=== PATIENT | male | born 1970 | race Caucasian/White ===

== ENCOUNTER 2016-11-15 19:42 | Emergency (ER) | payer MEDICARE, OTHER ==
[~2016-11-15] VITALS: Ht 172.7 cm; Wt 80.0 kg
[~2016-11-15 19:42] MED LIST: ASPI81CH CHEW; OMEP20TA PO; VENL75XR PO
[2016-11-15 19:48] VITALS: BP 136/63; PULSE 98; RESP 18; TEMP 98.4; O2SAT 100
--- NOTE | 2016-11-15 19:58 | PD ---
HPI Chief Complaint: General Weakness Time Seen by Provider: 19:56 Travel History International Travel<30 days: Yes Contact w/Intl Traveler<30days: [place] Traveled to: [place] Traveled to known affect area: No History of Present Illness HPI 46-year-old male presents to the emergency department for evaluation of right arm and leg cramping after he states he was "walking a lot". 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 Patient states he takes a baby aspirin and Effexor. He denies any headache or visual changes. No chest pain or abdominal pain. No shortness of breath. No vomiting. Patient states the right leg and arm are painful, cramping. PFSH Past Medical History Cerebrovascular Accident: Yes (Approx 8yrs ago per pt.) Diminished Hearing: No Musculoskeletal: Yes (right sided weakness r/t cva ) Psychiatric: Yes Pancreatitis: Yes Past Surgical History Appendectomy: Yes Other Surgery: Yes (WHIPPLE) Social History Alcohol Use: Yes Tobacco Use: Yes (CIGARS 3/DAY) Substance Use: No Allergies-Medications (Allergen,Severity, Reaction): Coded Allergies: No Known Allergies (Unverified , 11/15/16) Per pt. Reported Meds & Prescriptions Reported Meds & Active Scripts Active Omeprazole 20 Mg Tab 20 Mg PO DAILY Reported Aspirin 81 Mg Chew 81 Mg CHEW DAILY Effexor XR 24 HR (Venlafaxine HCl) 75 Mg Cap 3 Cap PO DAILY Review of Systems Except as stated in HPI: all other systems reviewed are Neg Physical Exam Narrative GENERAL: Well-developed well-nourished male patient, ambulatory. Afebrile. SKIN: Warm and dry. HEAD: Normocephalic. Atraumatic. EYES: No scleral icterus. No injection or drainage. NECK: Supple, trachea midline. No JVD or lymphadenopathy. CARDIOVASCULAR: Regular rate and rhythm without murmurs, gallops, or rubs. RESPIRATORY: Breath sounds equal bilaterally. No accessory muscle use. Lungs sounds are clear to auscultation. GASTROINTESTINAL: Abdomen soft, non-tender, nondistended. MUSCULOSKELETAL: No cyanosis, or edema. Patient's right arm is contracted. I am able to straighten out without difficulty. He has tenderness over right arm and right leg. BACK: Nontender without obvious deformity. No CVA tenderness. No midline spinal tenderness. Data Data Last Documented VS Vital Signs Date Time Temp Pulse Resp B/P Pulse Ox O2 Delivery O2 Flow Rate FiO2 11/15/16 19:48 98.4 98 18 136/63 100 Orders Creatine Kinase (Cpk) (11/15/16 19:55) Basic Metabolic Panel (Bmp) (11/15/16 19:55) Sodium Chlor 0.9% 1000 Ml Inj (Ns 1000 M (11/15/16 20:00) Labs Laboratory Tests Test 11/15/16 19:59 Sodium Level 136 MEQ/L Potassium Level 3.5 MEQ/L Chloride Level 102 MEQ/L Carbon Dioxide Level 24.3 MEQ/L Anion Gap 10 MEQ/L Blood Urea Nitrogen 2 MG/DL Creatinine 0.64 MG/DL Estimat Glomerular Filtration 135 ML/MIN Rate Random Glucose 91 MG/DL Calcium Level 8.0 MG/DL Total Creatine Kinase 247 U/L MDM Medical Decision Making Medical Screen Exam Complete: Yes Emergency Medical Condition: Yes Medical Record Reviewed: Yes Differential Diagnosis Electrolytes abnormality versus rhabdomyolysis versus dehydration Narrative Course 46-year-old male presents to the emergency department for evaluation of right arm and right leg cramping and pain after "walking a lot". BMP, CK ordered and pending. Patient is given 1 L normal saline IV bolus. BMP shows no acute abnormality. CK is 247. Upon reassessment, patient states he feels better after IV fluids. The patient is stable for discharge. He is to follow-up with his primary care physician. He is to return for any acute worsening of symptoms. Patient is agreeable to this plan. Diagnosis Primary Impression: Muscle cramps Referrals: Primary Care Physician call for appointment Patient Instructions: General Instructions, Muscle Cramp (ED) Additional Instructions: Drink plenty of water. Follow up with your primary care physician. Return to the emergency department for any acute, worsening of symptoms. Med/Other Pt SpecificInfo: No Change to Meds Disposition: 01 DISCHARGE HOME Condition: Stable Priyanka Chester FARIBA Nov 15, 2016 19:58
[2016-11-15] MEDS ORDERED: SODIUM CHLOR 0.9% 1000 ML INJ 1,000 ML IV ONE (20:00)
[2016-11-15 20:41] LABS: BICARBONATE 24.3 MEQ/L (21.0-32.0); POTASSIUM 3.5 MEQ/L (3.5-5.1)
[2016-11-15] MEDS ORDERED: IBUPROFEN 600 MG TAB PO ONE (21:15)
[2016-11-15 21:33] VITALS: BP 130/80
== END 2016-11-15 21:34 | disposition home or self-care (01) ==
LOC: NEPC 19:42
DX: R25.2 Cramp and spasm (principal); F17.290 Nicotine dependence, other tobacco product, uncomplicated; F10.10 Alcohol abuse, uncomplicated; Z86.73 Personal history of transient ischemic attack (TIA), and cerebral infarction without residual deficits
CPT/HCPCS: 80048; 82550; 96360; 99283; J7030

== ENCOUNTER 2016-11-17 20:16 | Inpatient (IN) | payer MEDICARE ==
[~2016-11-17] VITALS: Ht 185.4 cm; Wt 79.8 kg
[2016-11-17 20:18] VITALS: BP 110/52; PULSE 89; RESP 28; O2SAT 96
[2016-11-17] MEDS ORDERED: SODIUM CHLOR 0.9% 1000 ML INJ 1,000 ML IV SCH (20:27)
[2016-11-17] MEDS ORDERED: ACTIVATED CHARCOAL/SORBITOL LIQUID 25 GM/120 ML BTL NG ONE (20:30)
[2016-11-17] MEDS ORDERED: SODIUM CHLORIDE 0.9% FLUSH 5 ML FLUSH IVF PRN (20:30)
--- NOTE | 2016-11-17 20:35 | PD ---
HPI Chief Complaint: overdose Time Seen by Provider: 20:29 Travel History International Travel<30 days: No Contact w/Intl Traveler<30days: No History of Present Illness HPI 46 year old male presents to the emergency department voluntarily for overdose on 20 tablets Trazodone 150 mg PO approximately one hour prior to arrival. When asked why the patient did this, he states this just too much I want it to end. When asked if he wants to kill himself, he does respond with "yes". The patient also takes Effexor. He denies taking other medications. Patient denies any complaints at this time. Patient has recently moved from [place]. He does report trying to kill himself one year ago. He denies any psychiatric diagnosis. He did have a CVA with right-sided deficit approximately 8 years ago. He also takes a baby aspirin daily. Patient denies any alcohol or illegal drug use. PFSH Past Medical History Cerebrovascular Accident: Yes (Approx 8yrs ago per pt.) Diminished Hearing: No Musculoskeletal: Yes (right sided weakness r/t cva ) Psychiatric: Yes Pancreatitis: Yes Past Surgical History Appendectomy: Yes Other Surgery: Yes (WHIPPLE) Social History Alcohol Use: Yes Tobacco Use: Yes (CIGARS 3/DAY) Substance Use: No Allergies-Medications (Allergen,Severity, Reaction): Coded Allergies: No Known Allergies (Unverified , 11/17/16) Per pt. Reported Meds & Prescriptions Reported Meds & Active Scripts Active Omeprazole 20 Mg Tab 20 Mg PO DAILY Reported Aspirin 81 Mg Chew 81 Mg CHEW DAILY Effexor XR 24 HR (Venlafaxine HCl) 75 Mg Cap 3 Cap PO DAILY Review of Systems Except as stated in HPI: all other systems reviewed are Neg Physical Exam Narrative GENERAL: Well-developed well-nourished male patient, afebrile. Patient is alert and oriented. SKIN: Warm and dry. HEAD: Normocephalic. Atraumatic. EYES: No scleral icterus. No injection or drainage. PERRLA. NECK: Supple, trachea midline. No JVD or lymphadenopathy. CARDIOVASCULAR: Regular rate and rhythm without murmurs, gallops, or rubs. RESPIRATORY: Breath sounds equal bilaterally. No accessory muscle use. Lung sounds are clear to auscultation. GASTROINTESTINAL: Abdomen soft, non-tender, nondistended. MUSCULOSKELETAL: No cyanosis, or edema. BACK: Nontender without obvious deformity. No CVA tenderness. Data Data Last Documented VS Vital Signs Date Time Temp Pulse Resp B/P Pulse Ox O2 Delivery O2 Flow Rate FiO2 11/17/16 21:41 88 20 128/68 99 11/17/16 20:39 98.1 Orders Electrocardiogram (11/17/16 20:27) Alcohol (Ethanol) (11/17/16 20:27) Complete Blood Count With Diff (11/17/16 20:27) Comprehensive Metabolic Panel (11/17/16 20:27) Drug Screen, Random Urine (11/17/16 20:27) Salicylates (Aspirin) (11/17/16 20:27) Tylenol (Acetaminophen) (11/17/16 20:27) Blood Glucose (11/17/16 20:27) Ecg Monitoring (11/17/16 20:27) Iv Access Insert/Monitor (11/17/16 20:27) Oximetry (11/17/16 20:27) Sodium Chloride 0.9% Flush (Ns Flush) (11/17/16 20:30) Sodium Chlor 0.9% 1000 Ml Inj (Ns 1000 M (11/17/16 20:27) Charcoal Active-Sorbitol Liq (Charcoal A (11/17/16 20:30) Potassium Chloride (Kcl) (11/17/16 22:15) Labs Laboratory Tests Test 11/17/16 20:30 White Blood Count 5.9 TH/MM3 Red Blood Count 3.96 MIL/MM3 Hemoglobin 11.0 GM/DL Hematocrit 33.0 % Mean Corpuscular Volume 83.3 FL Mean Corpuscular Hemoglobin 27.8 PG Mean Corpuscular Hemoglobin 33.3 % Concent Red Cell Distribution Width 16.1 % Platelet Count 206 TH/MM3 Mean Platelet Volume 9.0 FL Neutrophils (%) (Auto) 36.4 % Lymphocytes (%) (Auto) 47.1 % Monocytes (%) (Auto) 10.2 % Eosinophils (%) (Auto) 5.1 % Basophils (%) (Auto) 1.2 % Neutrophils # (Auto) 2.2 TH/MM3 Lymphocytes # (Auto) 2.8 TH/MM3 Monocytes # (Auto) 0.6 TH/MM3 Eosinophils # (Auto) 0.3 TH/MM3 Basophils # (Auto) 0.1 TH/MM3 CBC Comment DIFF FINAL Differential Comment Sodium Level 137 MEQ/L Potassium Level 3.2 MEQ/L Chloride Level 104 MEQ/L Carbon Dioxide Level 22.0 MEQ/L Anion Gap 11 MEQ/L Blood Urea Nitrogen 6 MG/DL Creatinine 0.74 MG/DL Estimat Glomerular Filtration 114 ML/MIN Rate Random Glucose 103 MG/DL Calcium Level 8.3 MG/DL Total Bilirubin 0.7 MG/DL Aspartate Amino Transf 24 U/L (AST/SGOT) Alanine Aminotransferase 16 U/L (ALT/SGPT) Alkaline Phosphatase 125 U/L Total Protein 7.2 GM/DL Albumin 3.4 GM/DL Salicylates Level 4.2 MG/DL Acetaminophen Level LESS THAN 2.0 MCG/ML Ethyl Alcohol Level LESS THAN 3 MG/DL MDM Medical Decision Making Medical Screen Exam Complete: Yes Emergency Medical Condition: Yes Medical Record Reviewed: Yes Differential Diagnosis Overdose versus suicidal attempt versus depression Narrative Course 46-year-old male presents to the emergency department by private vehicle for evaluation after he states he took 20 tablets of trazodone 150 mg. He does status was an attempt to commit suicide. EKG is ordered and pending. CBC, CMP , alcohol level, urine drug, salicylate level, Tylenol level are ordered and pending. Patient is given 1 L normal saline bolus of 50 g of activated charcoal. Patient is placed under a Koch Act for suicide attempt. EKG shows sinus rhythm, heart rate [address] changes. CBC shows no acute abnormalities. CMP shows hypokalemia at 3.2, alkaline phosphatase 125. Alcohol level is less than 3. Salicylate level is 4.2. Tylenol level is less than 2.0. Urine drug screen is pending. Repeat EKG after 2 hours is completed. Patient is medically cleared for psychiatric screening and disposition. Diagnosis Primary Impression: Overdose Qualified Code: T50.902A - Overdose, intentional self-harm, initial encounter Additional Impression: Depression Qualified Code: F32.9 - Depression, unspecified depression type Additional Instructions: Patient is medically cleared for psychiatric screening and disposition. Priyanka Chester Nov 17, 2016 20:35
[2016-11-17 20:39] VITALS: BP 82/47; PULSE 78; RESP 24; TEMP 98.1; O2SAT 96
[2016-11-17 21:17] VITALS: BP 101/58; PULSE 97; RESP 20; O2SAT 98
[2016-11-17 21:20] LABS: AUTOMATED NEUTROPHIL # 2.2 TH/MM3 (1.8-7.7); BASOPHIL # 0.1 TH/MM3 (0-0.2); BASOPHIL % 1.2 % (0.0-2.0); EOSINOPHIL # 0.3 TH/MM3 (0-0.4); EOSINOPHIL % 5.1 % (0.0-4.0); HEMO FLAGS DIFF FINAL; LYMPH % 47.1 % (9.0-44.0); LYMPHOCYTE # 2.8 TH/MM3 (1.0-4.8); MEAN CELL VOLUME 83.3 FL (80.0-100.0); MEAN CORPUSCULAR HEMOGLOBIN 27.8 PG (27.0-34.0); MEAN CORPUSCULAR HGB CONC 33.3 % (32.0-36.0); MONO % 10.2 % (0.0-8.0); NEUT % 36.4 % (16.0-70.0); PLATELET COUNT 206 TH/MM3 (150-450); RED BLOOD COUNT 3.96 MIL/MM3 (4.50-5.90); RED CELL DISTRIBUTION WIDTH 16.1 % (11.6-17.2); WHITE BLOOD COUNT 5.9 TH/MM3 (4.0-11.0)
[2016-11-17 21:41] VITALS: BP 128/68; PULSE 88; RESP 20; O2SAT 99
[2016-11-17 21:59] LABS: ANION GAP 11 MEQ/L (5-15)
[2016-11-17 22:00] LABS: ACETAMINOPHEN LESS THAN 2.0 MCG/ML (10.0-30.0); ALKALINE PHOSPHATASE 125 U/L (45-117); ALT (GPT) 16 U/L (12-78); AST (GOT) 24 U/L (15-37); BLOOD UREA NITROGEN 6 MG/DL (7-18); CHLORIDE 104 MEQ/L (98-107); GLOMERULAR FILTRATION RATE 114 ML/MIN (>89); SODIUM (NA) 137 MEQ/L (136-145); TOTAL BILIRUBIN ADULT 0.7 MG/DL (0.2-1.0)
[2016-11-17 22:01] LABS: POTASSIUM 3.2 MEQ/L (3.5-5.1)
[2016-11-17] MEDS ORDERED: POTASSIUM CHLORIDE 20 MEQ CONTROLLED RELEASE TAB PO ONE (22:15)
--- NOTE | 2016-11-17 23:15 | PD ---
Data Data Last Documented VS Vital Signs Date Time Temp Pulse Resp B/P Pulse Ox O2 Delivery O2 Flow Rate FiO2 11/17/16 21:41 88 20 128/68 99 11/17/16 20:39 98.1 Orders Electrocardiogram (11/17/16 20:27) Alcohol (Ethanol) (11/17/16 20:27) Complete Blood Count With Diff (11/17/16 20:27) Comprehensive Metabolic Panel (11/17/16 20:27) Drug Screen, Random Urine (11/17/16 20:27) Salicylates (Aspirin) (11/17/16 20:27) Tylenol (Acetaminophen) (11/17/16 20:27) Blood Glucose (11/17/16 20:27) Ecg Monitoring (11/17/16 20:27) Iv Access Insert/Monitor (11/17/16 20:27) Oximetry (11/17/16 20:27) Sodium Chloride 0.9% Flush (Ns Flush) (11/17/16 20:30) Sodium Chlor 0.9% 1000 Ml Inj (Ns 1000 M (11/17/16 20:27) Charcoal Active-Sorbitol Liq (Charcoal A (11/17/16 20:30) Potassium Chloride (Kcl) (11/17/16 22:15) Labs Laboratory Tests Test 11/17/16 20:30 White Blood Count 5.9 TH/MM3 Red Blood Count 3.96 MIL/MM3 Hemoglobin 11.0 GM/DL Hematocrit 33.0 % Mean Corpuscular Volume 83.3 FL Mean Corpuscular Hemoglobin 27.8 PG Mean Corpuscular Hemoglobin 33.3 % Concent Red Cell Distribution Width 16.1 % Platelet Count 206 TH/MM3 Mean Platelet Volume 9.0 FL Neutrophils (%) (Auto) 36.4 % Lymphocytes (%) (Auto) 47.1 % Monocytes (%) (Auto) 10.2 % Eosinophils (%) (Auto) 5.1 % Basophils (%) (Auto) 1.2 % Neutrophils # (Auto) 2.2 TH/MM3 Lymphocytes # (Auto) 2.8 TH/MM3 Monocytes # (Auto) 0.6 TH/MM3 Eosinophils # (Auto) 0.3 TH/MM3 Basophils # (Auto) 0.1 TH/MM3 CBC Comment DIFF FINAL Differential Comment Sodium Level 137 MEQ/L Potassium Level 3.2 MEQ/L Chloride Level 104 MEQ/L Carbon Dioxide Level 22.0 MEQ/L Anion Gap 11 MEQ/L Blood Urea Nitrogen 6 MG/DL Creatinine 0.74 MG/DL Estimat Glomerular Filtration 114 ML/MIN Rate Random Glucose 103 MG/DL Calcium Level 8.3 MG/DL Total Bilirubin 0.7 MG/DL Aspartate Amino Transf 24 U/L (AST/SGOT) Alanine Aminotransferase 16 U/L (ALT/SGPT) Alkaline Phosphatase 125 U/L Total Protein 7.2 GM/DL Albumin 3.4 GM/DL Salicylates Level 4.2 MG/DL Acetaminophen Level LESS THAN 2.0 MCG/ML Ethyl Alcohol Level LESS THAN 3 MG/DL MDM Medical Record Reviewed: Yes Supervised Visit with ROSA: Yes Narrative Course I, Dr. Montalvo, have reviewed the advance practice practitioner's documentation and am in agreement, met with the patient face to face, made the diagnosis, and the medical decision making was done by me. The patient was initially seen by Priyanka. Please see her complete history and physical. *My assessment and Findings: The patient is a 46-year-old male who presents to [facility] emergency department with a reported history of depression and attempted to harm himself prior to arrival by ingesting trazodone. The patient reports feeling drowsy. The patient drove himself to this facility. The patient's initial examination is unremarkable. Koch act was written. Laboratory studies were ordered. An EKG was done. Initial EKG shows a sinus rhythm of 70, QRS duration 97 ms, QTC 454 ms. Repeat EKG done 2-1 /2-3 hours later shows a sinus rhythm of 89, QRS duration 94 ms, QTC 452, no acute ST segment changes. Otherwise the patient's laboratory studies are unremarkable. The patient has been medically cleared for evaluation by the psychiatric screener under a Koch act. Diagnosis Primary Impression: Overdose Qualified Code: T50.902A - Overdose, intentional self-harm, initial encounter Additional Impression: Depression Qualified Code: F32.9 - Depression, unspecified depression type Additional Instruction: Patient is medically cleared for psychiatric screening and disposition. Shaylee Montalvo MD Nov 17, 2016 23:15
[2016-11-18 00:01] VITALS: BP 122/70; PULSE 80; RESP 20; O2SAT 100
[2016-11-18 02:00] VITALS: BP 120/70; PULSE 78; RESP 20; O2SAT 100
[2016-11-18 03:22] VITALS: BP 110/68; PULSE 66; RESP 20; O2SAT 100
[2016-11-18] MEDS ORDERED: TRAZ150T75 PO (05:17)
[2016-11-18 06:15] VITALS: BP 123/58; PULSE 50; RESP 16; O2SAT 98
[2016-11-18 06:15] LABS: AMPHETAMINE, URINE NEG (NEG); BARBITURATES, URINE NEG (NEG); COCAINE, URINE NEG (NEG)
[2016-11-18] MEDS ORDERED: BENZTROPINE MESYLATE 2 MG/2 ML VIAL IM PRN (08:30)
[2016-11-18] MEDS ORDERED: LORazepam 2 MG TAB PO PRN (08:30)
[2016-11-18] MEDS ORDERED: ACETAMINOPHEN 325 MG TAB PO PRN (08:30)
[2016-11-18] MEDS ORDERED: MAGNESIUM HYDROXIDE SUSP 30 ML CUP PO PRN (08:30)
[2016-11-18] MEDS ORDERED: hydrOXYzine HCL 50 MG TAB PO PRN (08:30)
[2016-11-18] MEDS ORDERED: LORazepam 2 MG/ML VIAL IM PRN ×4 (08:30)
[2016-11-18] MEDS ORDERED: ALUMINUM/MAGNESIUM/SIMETH 30 ML CUP PO PRN (08:30)
[2016-11-18] MEDS ORDERED: FLUMAZENIL 1 MG/10 ML VIAL IV PUSH PRN (08:30)
[2016-11-18] MEDS ORDERED: LORazepam 1 MG TAB PO PRN (08:30)
[2016-11-18] MEDS ORDERED: BENZTROPINE MESYLATE 1 MG TAB PO PRN (08:30)
--- NOTE | 2016-11-18 08:36 | HHI.HP ---
Provisional Diagnosis Admission Date Nov 18, 2016 at 08:20 [place] I. 1. Major depressive disorder, recurrent severe without psychotic features 2. History of alcohol use disorder [place] II. 1. Some passive and dependent traits. [place] V. GAF is 30 presently Certification of Person's Competence To Provide Express and Informed Consent I have personally examined Kevin Goodman , a person being served at [facility] on, Nov 18, 2016 08:25. Express and informed consent means consent voluntarily given in writing, by a competent person, after sufficient explanation and disclosure of the subject matter involved to enable the person to make a knowing and willful decision without any element of force, fraud, deceit, duress, or other form of constraint or coercion. This person is 18 years of age or older, is not now known to be incompetent to consent to treatment with a guardian advocate, and does not have a health care surrogate or proxy currently making medical treatment decisions. I have found this person to be one of the following: [x] Competent to provide express and informed consent, as defined above, for voluntary admission to this facility and is competent to provide express and informed consent for treatment. He/she has the consistent capacity to make well reasoned, willful, and knowing decisions concerning his or her medical or mental health treatment. The person fully and consistently understands the purpose of the admission for examination/placement and is fully capable of personally exercising all rights assured under [place] Incompetent to provide express and informed consent to voluntary admission, and this is incompetent to provide express and informed consent to treatment. The person must be transferred to involuntary status and a petition for a guardian advocate filed with the Circuit Court. [] Refusing to provide express and informed consent to voluntary admission but is competent to provide express and informed consent for treatment. The person must be discharged or transferred to involuntary status. Form shall be completed within 24 hours of a person's arrival at the receiving facility and filed in the clinical record of each person: 1. Admitted on a voluntary basis 2. Permitted to provide express and informed consent to his/her own treatment 3. Allowed to transfer from involuntary to voluntary status 4. Prior to permitting a person to consent to his or her own treatment after having been previously found incompetent to consent to treatment. History of Present Illness Capacity: Has Capacity HPI Mr. Goodman is a 46-year-old male with a reported history of depression who presented voluntarily following an overdose on trazodone. He was medically cleared and Koch acted by the ED provider. Reviewing the electronic medical record, I note that the patient was seen about a week ago by Dr. Worrell in consultation. Patient seen and examined. Case discussed with nurse in the J-pod. On my examination today, the patient reports that he has been feeling depressed for some time secondary to family issues. In particular, the patient says that his sister has moved his parents from a local fdc to a fdc in [place], putting them far away from him. He does have some passive and dependent traits on examination. He says that he has been feeling depressed and crying a lot, although there may be some disconnect between mood and affect and he does have a history of stroke in the past. He says that he became acutely suicidal yesterday and wanted to "end it all" and so he took an overdose of trazodone. He is unhappy to have survived his overdose and still feels suicidal now although he does not articulate any desire to hurt himself in the inpatient setting. He denies any audiovisual hallucinations, nor can I elicit any delusional beliefs. No hypomanic or manic symptoms. The remainder of the psychiatric ROS is negative. Past psychiatric history: Patient endorses a history of depression. He is not currently under the care of a psychiatrist. He says his most recent psychiatric admission was about a year ago. Dr. Worrell's note indicates that he has 3 prior psychiatric admissions. He endorses a history of suicide attempts chiefly by overdose, most recently a year ago on pills. He is prescribed Effexor for his depression and reportedly has never tried any other agents. Review of Systems Other Besides residual deficits from CVA, no reported physical complaints. Past Psych History Psychological trauma history Patient denies a history of physical, verbal or sexual abuse or other trauma Violence risk - others (6 mos) Lower imminent risk. Violence risk - self (6 mos) Elevated. See above. Substance Abuse History Drugs/Alcohol past 12 months Patient endorses a history of alcoholism but says that he has been clean and sober since undergoing a Whipple procedure for chronic pancreatitis. Otherwise no substance use. Past Family Social History Coded Allergies: No Known Allergies (Unverified , 11/17/16) Per pt. Past Medical History Includes a history of CVA and pancreatitis status post Whipple. Active Scripts Omeprazole 20 Mg Tab20 Mg PO DAILY #20 TAB Ref 0 Prov:Luba Alfonso MD 11/11/16 Reported Medications Trazodone 150 Mg [id number] Mg PO HS #30 TAB Ref 0 11/18/16 Aspirin 81 Mg Chew81 Mg CHEW DAILY Ref 0 11/11/16 Venlafaxine ER 24 HR (Effexor XR 24 HR)75 Mg Cap3 Cap PO DAILY #30 CAP Ref 0 11/11/16 Current Medications Medications (Trade) Dose Ordered Sig/Doyle Route Start Time Stop Time Status Last Admin (NS Flush) 2 ml UNSCH PRN IVF 11/17/16 20:30 11/17/16 20:49 (Aspirin Chew) 81 mg DAILY CHEW 11/18/16 09:00 UNV (Protonix) 20 mg DAILY PO 11/18/16 09:00 UNV (Effexor Xr) 225 mg DAILY PO 11/18/16 09:00 UNV Family History Patient denies a family history of mental illness Social History Patient reports that he is presently living with roommates. He is and has a daughter. He denies any or legal history. He has a bachelor's degree in [employer] but is not presently working and is on disability. He denies any access to guns or firearms. Patient's Strengths (min. 2) Maintaining basic hygiene. Verbally fluent. Physical Exam A physical examination was completed in the emergency room by the ER staff. On my examination today, the patient appears to be in no acute physical distress. He is fairly well-nourished and well-developed. Besides the deficits from the stroke, no motoric abnormalities noted. Labs and vital signs reviewed. Vital Signs Vital Signs Date Time Temp Pulse Resp B/P Pulse Ox O2 Delivery O2 Flow Rate FiO2 11/18/16 06:15 50 16 123/58 98 Room Air 11/17/16 20:39 98.1 Lab Results Item Value Date Time White Blood Count 5.9 TH/MM3 11/17/162029 Hemoglobin 11.0 GM/DL L 11/17/162029 Platelet Count 206 TH/MM3 11/17/162029 Sodium Level 137 MEQ/L 11/17/162029 Potassium Level 3.2 MEQ/L L 11/17/162029 Chloride Level 104 MEQ/L 11/17/162029 Carbon Dioxide Level 22.0 MEQ/L 11/17/162029 Blood Urea Nitrogen 6 MG/DL L 11/17/162029 Creatinine 0.74 MG/DL 11/17/162029 Aspartate Amino Transf (AST/SGOT) 24 U/L 11/17/162029 Alanine Aminotransferase (ALT/SGPT) 16 U/L 11/17/162029 Alkaline Phosphatase 125 U/L H 11/17/162029 Toxicology is negative and alcohol level was undetectable. Anemia fairly stable versus last reading. Hypokalemia has been repleted. Mental Status Examination Patient is in hospital gown. He is fairly well groomed. He is awake and alert and oriented 3. Besides deficits from stroke, no abnormal motor movements noted. Speech is within normal limits for rate, tone and volume. Language and fund of knowledge seem adequate and appropriate for age. Mood is depressed and affect is restricted and dysphoric. Thought process linear. No loosening of associations. No evident delusions. Denies AVH. Endorses ongoing suicidal ideation without specific plan or intent at this time. No reported urge to hurt himself on the inpatient psychiatric unit. No HI. Insight and judgment are fair. Previous Suicide Attempts: Yes Previous Homicide Attempts: No Assessment & Plan Problem List: (1) Major depressive disorder ICD Code: F32.9 Assessment & Plan This is a 46-year-old male who comes in to the ED following a reported trazodone overdose. He has been medically cleared by the ED provider. He presents to me as depressed and reports ongoing suicidal ideation without specific plan or intent at this time. He does have a history of overdoses in the past. There may be a component of pseudobulbar affect given his history of stroke as he describes some disconnect between mood and affect, but he remains depressed. Patient requires psychiatric admission at this time for safety, observation and stabilization. --Admit inpatient --Voluntary status --Consult to the hospitalist to evaluate patient's medical conditions. --Consult physical therapy. Fall precautions. --Continue Effexor 225 mg daily --Augment with Abilify. QTc 452ms and decreasing on EKG. Abilify is one of the antipsychotics least associated with torsades. --Atarax as needed for anxiety. Cogentin as needed for EPS. Benadryl as needed for sleep. Discontinue trazodone. --Patient reports that his drinking is in his past, but I will start the patient on withdrawal protocol with Ativan out of an abundance of caution. --Vitals every shift --Counselor to see --Disposition planning --Estimated length of stay: 5-7 days Discharge Planning Pending psychiatric stabilization Request HC Surrog/Guard Advoc?: No Problem Qualifiers (1) Major depressive disorder: Qualified Code: F33.2 - Severe episode of recurrent major depressive disorder, without psychotic features Gulshan Michaels MD Nov 18, 2016 08:36
[2016-11-18] MEDS: REMOVE OLD PATCH T-DERMAL SCH (09:00)
[2016-11-18 10:33] VITALS: BP 126/58; PULSE 82; RESP 18; O2SAT 97
[2016-11-18] MEDS: PANTOPRAZOLE SOD 20 MG DELAYED RELEASE TAB PO SCH (10:45)
[2016-11-18] MEDS: ASPIRIN 81 MG CHEW TAB CHEW SCH (10:45)
[2016-11-18] MEDS: NICOTINE 21 MG/24 HR PATCH T-DERMAL SCH (10:45)
--- NOTE | 2016-11-18 11:18 | EKG ---
Date Performed: 11/17/2016 Time Performed: 23:04:52 PTAGE: 46 years EKG: Sinus rhythm NORMAL ECG NO PREVIOUS TRACING DOCTOR: Robel Malhotra Interpretating Date/Time 11/18/2016 11:16:41
--- NOTE | 2016-11-18 11:36 | EKG ---
Date Performed: 11/17/2016 Time Performed: 20:29:22 PTAGE: 46 years EKG: Sinus rhythm NORMAL ECG NO PREVIOUS TRACING DOCTOR: Robel Malhotra Interpretating Date/Time 11/18/2016 11:35:42
[2016-11-18 12:06] VITALS: BP 118/66; PULSE 82; RESP 16; TEMP 96.7; O2SAT 98
[2016-11-18] MEDS: VENLAFAXINE HCL XR 75 MG CAP PO SCH (13:00)
--- NOTE | 2016-11-18 13:43 | PD.CONS ---
HPI Service 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 Suicidal ideation, also had a history of trying to kill himself a year ago. Patient recently moved from [place]. Now admitted to inpatient psychiatry unit for further evaluation. Consulted for medical management. Patient seen today. States his doing well. Concerned about his antidepressant Effexor not working and needs some adjustments. Patient states that he had CVA previously but right-sided weakness but able to ambulate and do ADLs without problems. He continues to take aspirin prior to admission. Otherwise, denies pain and discomfort. Denies SOB/ dyspnea. Denies chest pain, palpitations, headaches, dizziness. Denies fevers, chills, n/v/d. Review of Systems Constitutional: DENIES: Fever, Chills, Change in appetite Endocrine: DENIES: Heat/cold intolerance Eyes: DENIES: Blurred vision, Eye pain Cardiovascular: DENIES: Chest pain, Palpitations, Dyspnea on Exertion, Lower Extremity Edema, Orthopnea Gastrointestinal: DENIES: Black stools, Constipation, Diarrhea, Nausea, Vomiting Genitourinary: DENIES: Urinary frequency, Urgency Musculoskeletal: DENIES: Joint pain Integumentary: DENIES: Abnormal pigmentation Neurologic: COMPLAINS OF: Abnormal gait, Localized weakness, Poor Balance Psychiatric: COMPLAINS OF: Depression Past Family Social History Allergies: Coded Allergies: No Known Allergies (Unverified , 11/17/16) Per pt. Past Medical History CVA with right-sided weakness Pancreatitis Past Surgical History Appendectomy [place] Reported Medications Omeprazole 20 Mg Tab 20 Mg PO DAILY Aspirin 81 Mg Chew 81 Mg CHEW DAILY Effexor XR 24 HR (Venlafaxine HCl) 75 Mg Cap 3 Cap PO DAILY Active Ordered Medications Current Medications Medications (Trade) Dose Ordered Sig/Doyle Route Start Time Stop Time Status Last Admin (NS Flush) 2 ml UNSCH PRN IVF 11/17/16 20:30 11/17/16 20:49 (Aspirin Chew) 81 mg DAILY CHEW 11/18/16 09:00 11/18/16 10:45 (Protonix) 20 mg DAILY PO 11/18/16 09:00 11/18/16 10:45 (Effexor Xr) 225 mg DAILY PO 11/18/16 09:00 11/18/16 13:00 (Benadryl) 50 mg HS PRN PO 11/18/16 08:30 (Tylenol) 650 mg Q4H PRN PO 11/18/16 08:30 (Milk Of Magnesia Liq) 30 ml DAILY PRN PO 11/18/16 08:30 (Mag-Al Plus Susp Liq) 30 ml Q6H PRN PO 11/18/16 08:30 (Habitrol 21 Mg Patch.24 Hr) 1 patch DAILY T-DERMAL 11/18/16 09:00 11/18/16 10:45 (Atarax) 50 mg Q6H PRN PO 11/18/16 08:30 (Cogentin) 1 mg Q12H PRN PO 11/18/16 08:30 (Cogentin Inj) 1 mg Q12H PRN IM 11/18/16 08:30 (Ativan) 1 mg Q4H PRN PO 11/18/16 08:30 (Ativan Inj) 1 mg Q4H PRN IM 11/18/16 08:30 (Ativan) 2 mg Q2H PRN PO 11/18/16 08:30 (Ativan Inj) 2 mg Q2H PRN IM 11/18/16 08:30 (Ativan Inj) 2 mg Q1H PRN IM 11/18/16 08:30 (Ativan Inj) 2 mg Q15M PRN IM 11/18/16 08:30 Miscellaneous Information 1 DAILY T-DERMAL 11/18/16 09:00 (Abilify) 2 mg DAILY PO 11/19/16 09:00 Family History Mother with diabetes Social History Alcohol use Tobacco use 3 cigars per day Denies illicit drug use Physical Exam Vital Signs Vital Signs Date Time Temp Pulse Resp B/P Pulse Ox O2 Delivery O2 Flow Rate FiO2 11/18/16 12:06 96.7 82 16 118/66 98 11/18/16 10:33 82 18 126/58 97 Room Air 11/18/16 06:15 50 16 123/58 98 Room Air 11/18/16 03:22 66 20 110/68 100 11/18/16 02:00 78 20 120/70 100 11/18/16 00:01 80 20 122/70 100 11/17/16 21:41 88 20 128/68 99 11/17/16 21:17 97 20 101/58 98 11/17/16 20:41 78 24 96 11/17/16 20:39 98.1 78 24 82/47 96 11/17/16 20:18 89 28 110/52 96 Physical Exam GENERAL: This is a well-nourished, well-developed patient, in no apparent distress. SKIN: No rashes, ecchymoses or lesions. Cool and dry. HEAD: Atraumatic. Normocephalic. EYES: Pupils equal round and reactive. No scleral icterus. No injection or drainage. ENT: Nose without bleeding. Airway patent. NECK: Trachea midline. No JVD or lymphadenopathy. Supple, nontender, no meningeal signs. CARDIOVASCULAR: Regular rate and rhythm without murmurs, gallops, or rubs. RESPIRATORY: Clear to auscultation. Breath sounds equal bilaterally. No wheezes , rales, or rhonchi. GASTROINTESTINAL: Abdomen soft, non-tender, nondistended. Bowel sounds active 4. MUSCULOSKELETAL: Extremities without clubbing, cyanosis, or edema. NEUROLOGICAL: Awake and alert. Oriented 4. Right upper extremity, right lower extremity 4 out of 5 muscle strength. Left lower extremity and left upper extremity five out of 5 muscle strength in all muscle groups. Normal speech. Laboratory Laboratory Tests Test 11/17/16 11/18/16 20:30 05:35 White Blood Count 5.9 Red Blood Count 3.96 Hemoglobin 11.0 Hematocrit 33.0 Mean Corpuscular Volume 83.3 Mean Corpuscular Hemoglobin 27.8 Mean Corpuscular Hemoglobin 33.3 Concent Red Cell Distribution Width 16.1 Platelet Count 206 Mean Platelet Volume 9.0 Neutrophils (%) (Auto) 36.4 Lymphocytes (%) (Auto) 47.1 Monocytes (%) (Auto) 10.2 Eosinophils (%) (Auto) 5.1 Basophils (%) (Auto) 1.2 Neutrophils # (Auto) 2.2 Lymphocytes # (Auto) 2.8 Monocytes # (Auto) 0.6 Eosinophils # (Auto) 0.3 Basophils # (Auto) 0.1 CBC Comment DIFF FINAL Differential Comment Sodium Level 137 Potassium Level 3.2 Chloride Level 104 Carbon Dioxide Level 22.0 Anion Gap 11 Blood Urea Nitrogen 6 Creatinine 0.74 Estimat Glomerular Filtration 114 Rate Random Glucose 103 Calcium Level 8.3 Total Bilirubin 0.7 Aspartate Amino Transf 24 (AST/SGOT) Alanine Aminotransferase 16 (ALT/SGPT) Alkaline Phosphatase 125 Total Protein 7.2 Albumin 3.4 Salicylates Level 4.2 Acetaminophen Level LESS THAN 2.0 Ethyl Alcohol Level LESS THAN 3 Urine Opiates Screen NEG Urine Barbiturates Screen NEG Urine Amphetamines Screen NEG Urine Benzodiazepines Screen NEG Urine Cocaine Screen NEG Urine Cannabinoids Screen NEG Result Diagram: 11/17/16202911/17/162029 Assessment and Plan Problem List: (1) Major depressive disorder ICD Code: F32.9 Status: Acute (2) Overdose ICD Code: T50.901A Status: Acute (3) Depression ICD Code: F32.9 Status: Acute (4) CVA, old, hemiparesis ICD Code: I69.359 Status: Acute Assessment and Plan Patient is a 46-year-old male primary medical history of 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 Suicidal ideation, also had a history of trying to kill himself a year ago. Admitted to inpatient psychiatry unit. Consulted for medical management. Suicidal ideation, depression - managed by psychiatry team CVA, right-sided weakness - continue aspirin - BP trend within normal limits. CBC with mild anemia otherwise within normal. Tobacco use - counseled. Nicotine patch in place. GERD - pantoprazole use Hypokalemia - potassium replacement provided - Repeat BMP DVT prop early ambulation Thank you for this consultation. Stable from Hospitalist standpoint. We will sign off. Reconsult as needed. Written by Elroy Martinez, acting as scribe for Dr. Arroyo on 11/18/16 at 15:29. The documentation accurately reflects the work performed [id number] by me on at 15:29. Code Status Full code Discussed Condition With Patient, nursing Problem Qualifiers (1) Major depressive disorder: Qualified Code: F33.2 - Severe episode of recurrent major depressive disorder, without psychotic features (2) Overdose: Qualified Code: T50.902A - Overdose, intentional self-harm, initial encounter (3) Depression: Qualified Code: F32.9 - Depression, unspecified depression type Elroy Chan Nov 18, 2016 13:43 Giancarlo Arroyo DO Nov 18, 2016 22:15
[2016-11-19 06:06] VITALS: BP 122/54; PULSE 76; RESP 16; TEMP 98.2; O2SAT 97
[2016-11-19 08:25] LABS: ANION GAP 7 MEQ/L (5-15); BICARBONATE 26.7 MEQ/L (21.0-32.0); BLOOD UREA NITROGEN 4 MG/DL (7-18); CHLORIDE 108 MEQ/L (98-107); GLOMERULAR FILTRATION RATE 152 ML/MIN (>89); HDL CHOLESTEROL 50.5 MG/DL (40.0-60.0); LDL CHOLESTEROL 51 MG/DL (0-99); SODIUM (NA) 142 MEQ/L (136-145)
[2016-11-19] MEDS: VENLAFAXINE HCL XR 75 MG CAP PO SCH ×2 (08:55→21:04)
[2016-11-19] MEDS: NICOTINE 21 MG/24 HR PATCH T-DERMAL SCH (08:55)
[2016-11-19] MEDS: ASPIRIN 81 MG CHEW TAB CHEW SCH (08:55)
[2016-11-19] MEDS: PANTOPRAZOLE SOD 20 MG DELAYED RELEASE TAB PO SCH (08:55)
[2016-11-19] MEDS: REMOVE OLD PATCH T-DERMAL SCH (08:55)
[2016-11-19] MEDS ORDERED: ARIPiprazole 2 MG TAB PO SCH (09:00)
--- NOTE | 2016-11-19 13:19 | HHI.PYPN ---
Subjective Remarks Patient was seen and discussed with the staff antisubmarine officer. Patient reported that he has been feeling frustrated under a lot of stress since his mother was placed in a skilled nursing. Mother is suffering from multiple sclerosis. Because of the cold weather he decided to come to [place] about for 6 weeks and started to feel more depressed frustrated and thoughts of suicide was crossing his mind at that point he decided to come for help. He still has fleeting thoughts of wanting to end his life because since he had a stroke he has been having difficulty controlling his emotions he claimed that sometimes she cries when he is supposed to laugh and he laughs when he supposed to cry and that frustrates him. Denied any active auditory or visual hallucinations. No side effects were complained from the medication. No behavior or management problem reported. He tends to isolate himself and withdraws from people but he was encouraged to participate in all the therapeutic activity. He promised that he is not going to do anything to hurt himself while he is in the hospital. Continue with the same treatment Review of Systems Except as stated in HPI: all other systems reviewed are Neg Psychiatric: COMPLAINS OF: Anxiety, Mood changes, Depression, Suicidal Ideation Objective Alert: Yes [place]: Person, Place, Situation Mood: Anxious, Depressed Affect: Restricted Memory Intact: Recent (mildly impaired) Hallucinations: Other (patient denied any auditory or visual hallucinations) Delusions: No Delusion Type: Other (no delusional material elicited at this time) Suicidal: Ideation (patient claimed that the fleeting thoughts of suicide crosses his mind but he from his he is not going to do anything to hurt himself while in the hospital) Homicidal: Ideation (denied) Insight/Judgement Fair to limited Remarks Attention and concentration improving. Gait normal. Language normal. Fund of knowledge average Labs Test 11/19/16 06:59 Sodium Level 142 MEQ/L Potassium Level 4.0 MEQ/L Chloride Level 108 MEQ/L Carbon Dioxide Level 26.7 MEQ/L Anion Gap 7 MEQ/L Blood Urea Nitrogen 4 MG/DL Creatinine 0.58 MG/DL Estimat Glomerular Filtration 152 ML/MIN Rate Random Glucose 95 MG/DL Calcium Level 8.2 MG/DL Triglycerides Level 60 MG/DL Cholesterol Level 113 MG/DL LDL Cholesterol 51 MG/DL HDL Cholesterol 50.5 MG/DL Cholesterol/HDL Ratio 2.23 RATIO Vitals/IOs Vital Signs Date Time Temp Pulse Resp B/P Pulse Ox O2 Delivery O2 Flow Rate FiO2 11/19/16 06:06 98.2 76 16 122/54 97 11/18/16 10:33 Room Air Assessment & Plan Problem List: (1) Major depressive disorder ICD Code: F32.9 Assessment & Plan Estimated LOS: days Justification for Cont. Inpt. Unable and unreliable to contract for safety and monitoring of the medication to lift depression Request HC Surrog/Guard Advoc?: No Problem Qualifiers (1) Major depressive disorder: Qualified Code: F33.2 - Severe episode of recurrent major depressive disorder, without psychotic features Yosvany Brody MD Nov 19, 2016 13:19
[2016-11-19 16:33] LABS: HEMOGLOBIN A1a 1.2 %; HEMOGLOBIN A1b 1.6 %; HEMOGLOBIN Ao 84.9 %; HEMOGLOBIN LA1C 1.8 %; HEMOGLOBIN P3 3.5 %
[2016-11-19 19:36] VITALS: BP 138/67; PULSE 79; RESP 18; TEMP 98.3; O2SAT 99
[2016-11-19] MEDS: ARIPiprazole 5 MG TAB PO SCH (21:04)
[2016-11-20 06:03] VITALS: BP 156/86; PULSE 74; RESP 17; TEMP 98.1; O2SAT 98
[2016-11-20] MEDS: REMOVE OLD PATCH T-DERMAL SCH (09:00)
[2016-11-20] MEDS: ARIPiprazole 5 MG TAB PO SCH ×3 (09:07→17:09)
[2016-11-20] MEDS: VENLAFAXINE HCL XR 75 MG CAP PO SCH ×2 (09:07→20:27)
[2016-11-20] MEDS: ASPIRIN 81 MG CHEW TAB CHEW SCH (09:07)
[2016-11-20] MEDS: NICOTINE 21 MG/24 HR PATCH T-DERMAL SCH (09:07)
[2016-11-20] MEDS: PANTOPRAZOLE SOD 20 MG DELAYED RELEASE TAB PO SCH (09:07)
--- NOTE | 2016-11-20 11:37 | HHI.PYPN ---
Subjective Remarks Patient was seen and discussed with the staff internist office based only. Patient claimed that he still has been having some depressive feelings and suicidal thoughts crossing his mind. He has been having some difficulty with his sleep. He misses his family support but he could be reassured. No behavior or management problem reported. Patient is compliant in taking medication. No side effects were complained. Continue with the same treatment adjust the medication Review of Systems Except as stated in HPI: all other systems reviewed are Neg Psychiatric: COMPLAINS OF: Anxiety, Depression, Suicidal Ideation Objective Alert: Yes [place]: Person, Place, Situation Mood: Anxious, Depressed Affect: Restricted Memory Intact: Recent (mildly impaired) Hallucinations: Other (patient denied any auditory or visual hallucinations) Delusions: No Delusion Type: Other (no delusional material elicited at this time) Suicidal: Ideation (patient claimed that the fleeting thoughts of suicide crosses his mind but he from his he is not going to do anything to hurt himself while in the hospital) Homicidal: Ideation (denied) Insight/Judgement Limited Vitals/IOs Vital Signs Date Time Temp Pulse Resp B/P Pulse Ox O2 Delivery O2 Flow Rate FiO2 11/20/16 06:03 98.1 74 17 156/86 98 11/18/16 10:33 Room Air Assessment & Plan Problem List: (1) Major depressive disorder ICD Code: F32.9 Assessment & Plan Estimated LOS: days Justification for Cont. Inpt. Monitoring of the medication and adjusting it and titrating it to lift her depression. Risk of safety patient has suicidal ideation Request HC Surrog/Guard Advoc?: No Problem Qualifiers (1) Major depressive disorder: Qualified Code: F33.2 - Severe episode of recurrent major depressive disorder, without psychotic features Yosvany Brody MD Nov 20, 2016 11:37
[2016-11-20 18:50] VITALS: BP 122/61; PULSE 93; RESP 18; TEMP 99; O2SAT 100
[2016-11-20] MEDS: diphenhydrAMINE HCL 50 MG CAP PO PRN (20:27)
[2016-11-21 05:53] VITALS: BP 111/63; PULSE 73; RESP 16; TEMP 98.1
[2016-11-21] MEDS: VENLAFAXINE HCL XR 75 MG CAP PO SCH ×2 (08:41→21:32)
[2016-11-21] MEDS: ASPIRIN 81 MG CHEW TAB CHEW SCH (08:42)
[2016-11-21] MEDS: PANTOPRAZOLE SOD 20 MG DELAYED RELEASE TAB PO SCH (08:42)
[2016-11-21] MEDS: ARIPiprazole 5 MG TAB PO SCH ×2 (08:42→13:03)
[2016-11-21] MEDS: REMOVE OLD PATCH T-DERMAL SCH (08:44)
[2016-11-21] MEDS: NICOTINE 21 MG/24 HR PATCH T-DERMAL SCH (08:44)
[2016-11-21 19:39] VITALS: BP 132/63; PULSE 83; RESP 16; TEMP 98.7; O2SAT 100
--- NOTE | 2016-11-21 21:22 | HHI.PYPN ---
Subjective Remarks Pt seen and discussed with staff. He remains depressed but is compliant with mediations. No side effects. No behavioral problems on unit. No SI/HI today and exhibiting some remorse over recent attempt. Objective Alert: Yes [place]: Person, Place, Date, Situation Mood: Anxious, Depressed Affect: Restricted Memory Intact: Immediate, Recent, Remote Hallucinations: Other (patient denied any auditory or visual hallucinations) Delusions: No Delusion Type: Other (no delusional material elicited at this time) Suicidal: Ideation (denies) Homicidal: Ideation (denied) Insight/Judgement limited Vitals/IOs Vital Signs Date Time Temp Pulse Resp B/P Pulse Ox O2 Delivery O2 Flow Rate FiO2 11/21/16 19:39 98.7 83 16 132/63 100 11/18/16 10:33 Room Air Assessment & Plan Problem List: (1) Major depressive disorder ICD Code: F32.9 Assessment & Plan Continue current tx plan. Estimated LOS: days Justification for Cont. Inpt. monitoring for safety Request HC Surrog/Guard Advoc?: No Problem Qualifiers (1) Major depressive disorder: Qualified Code: F33.2 - Severe episode of recurrent major depressive disorder, without psychotic features Radha Dobson MD Nov 21, 2016 21:22
[2016-11-21] MEDS: diphenhydrAMINE HCL 50 MG CAP PO PRN (21:32)
[2016-11-22 05:48] VITALS: BP 104/74; PULSE 80; RESP 16; TEMP 98.1
[2016-11-22] MEDS: VENLAFAXINE HCL XR 75 MG CAP PO SCH ×2 (08:41→22:10)
[2016-11-22] MEDS: PANTOPRAZOLE SOD 20 MG DELAYED RELEASE TAB PO SCH (08:41)
[2016-11-22] MEDS: REMOVE OLD PATCH T-DERMAL SCH (08:41)
[2016-11-22] MEDS: NICOTINE 21 MG/24 HR PATCH T-DERMAL SCH (08:41)
[2016-11-22] MEDS: ASPIRIN 81 MG CHEW TAB CHEW SCH (08:41)
[2016-11-22] MEDS: ARIPiprazole 5 MG TAB PO SCH ×3 (08:46→18:00)
--- NOTE | 2016-11-22 18:04 | HHI.PYPN ---
Subjective Remarks Pt seen and discussed with staff. He reports that he remains depressed but mood is improving. He is compliant with medications and denies side effects. He has been less isolative on unit. No SI/HI. Objective Alert: Yes [place]: Person, Place, Date, Situation Mood: Depressed Affect: Restricted Memory Intact: Immediate, Recent, Remote Hallucinations: Other (patient denied any auditory or visual hallucinations) Delusions: No Delusion Type: Other (no delusional material elicited at this time) Suicidal: Ideation (denies) Homicidal: Ideation (denied) Insight/Judgement poor Vitals/IOs Vital Signs Date Time Temp Pulse Resp B/P Pulse Ox O2 Delivery O2 Flow Rate FiO2 11/22/16 05:48 98.1 80 16 104/74 11/21/16 19:39 100 11/18/16 10:33 Room Air Assessment & Plan Problem List: (1) Major depressive disorder ICD Code: F32.9 Assessment & Plan Continue current tx plan. Estimated LOS: days Justification for Cont. Inpt. risk of decompensating Request HC Surrog/Guard Advoc?: No Problem Qualifiers (1) Major depressive disorder: Qualified Code: F33.2 - Severe episode of recurrent major depressive disorder, without psychotic features Radha Dobson MD Nov 22, 2016 18:04
[2016-11-22 19:35] VITALS: BP 110/69; PULSE 91; RESP 18; TEMP 98; O2SAT 98
[2016-11-22] MEDS: diphenhydrAMINE HCL 50 MG CAP PO PRN (22:10)
[2016-11-23 05:00] VITALS: BP 116/66; PULSE 76; RESP 18; TEMP 98
[2016-11-23] MEDS: VENLAFAXINE HCL XR 75 MG CAP PO SCH ×2 (08:41→21:18)
[2016-11-23] MEDS: PANTOPRAZOLE SOD 20 MG DELAYED RELEASE TAB PO SCH (08:41)
[2016-11-23] MEDS: ASPIRIN 81 MG CHEW TAB CHEW SCH (08:41)
[2016-11-23] MEDS: ARIPiprazole 5 MG TAB PO SCH ×4 (08:41→21:18)
[2016-11-23] MEDS: NICOTINE 21 MG/24 HR PATCH T-DERMAL SCH ×2 (09:00→10:00)
[2016-11-23] MEDS: REMOVE OLD PATCH T-DERMAL SCH ×2 (09:00→10:00)
[2016-11-23] MEDS ORDERED: LORazepam 0.5 MG TAB PO PRN (11:00)
--- NOTE | 2016-11-23 11:03 | HHI.PYPN ---
Subjective Remarks Patient was seen and discussed with the medical staff manager. Patient reported that he has been feeling somewhat anxious worried scared to go out and fearful of reverting back to drinking but he could be reassured. Patient denied any active suicidal ideation intentions or plan. Denied any withdrawal symptoms or seizure. Patient has been sleeping fairly well. Denied any auditory or visual hallucinations. Advised to continue with the same treatment Review of Systems Except as stated in HPI: all other systems reviewed are Neg Psychiatric: COMPLAINS OF: Anxiety, Mood changes, Depression Objective Alert: Yes [place]: Person, Place, Date, Situation Mood: Anxious, Depressed Affect: Restricted Memory Intact: Immediate, Recent, Remote Hallucinations: Other (patient denied any auditory or visual hallucinations) Delusions: No Delusion Type: Other (no delusional material elicited at this time) Suicidal: Ideation (denies) Homicidal: Ideation (denied) Insight/Judgement Fair to limited Remarks Attention and concentration improving. Gait normal. Language normal. Fund of knowledge average Vitals/IOs Vital Signs Date Time Temp Pulse Resp B/P Pulse Ox O2 Delivery O2 Flow Rate FiO2 11/23/16 05:00 98.0 76 18 116/66 11/22/16 19:35 98 Assessment & Plan Problem List: (1) Major depressive disorder ICD Code: F32.9 Assessment & Plan Estimated LOS: days Justification for Cont. Inpt. This for decompensation and going back to drinking. Monitoring of the medication and stabilizing mood Request HC Surrog/Guard Advoc?: No Problem Qualifiers (1) Major depressive disorder: Qualified Code: F33.2 - Severe episode of recurrent major depressive disorder, without psychotic features Yosvany Brody MD Nov 23, 2016 11:03
[2016-11-23 19:34] VITALS: BP 111/71; PULSE 98; RESP 18; TEMP 98.1; O2SAT 97
[2016-11-24 06:54] VITALS: BP 111/59; PULSE 74; RESP 18; TEMP 98
[2016-11-24] MEDS: ARIPiprazole 5 MG TAB PO SCH ×2 (08:58→12:24)
[2016-11-24] MEDS: VENLAFAXINE HCL XR 75 MG CAP PO SCH (08:58)
[2016-11-24] MEDS: PANTOPRAZOLE SOD 20 MG DELAYED RELEASE TAB PO SCH (08:59)
[2016-11-24] MEDS: NICOTINE 21 MG/24 HR PATCH T-DERMAL SCH (08:59)
[2016-11-24] MEDS: ASPIRIN 81 MG CHEW TAB CHEW SCH (08:59)
[2016-11-24] MEDS: REMOVE OLD PATCH T-DERMAL SCH (09:00)
--- NOTE | 2016-11-24 11:37 | HHI.DS ---
Psychiatry Discharge Summary Inpatient Psychiatric care?: Yes Advance Directive: No Reason Not Provided: Due to Patient Condition Mental Health AdvanceDirective: No Health Care Proxy: No Admission Admission Date Nov 18, 2016 at 08:20 Admission Diagnosis: (1) Major depressive disorder ICD Code: F32.9 (2) Alcohol abuse with alcohol-induced mood disorder ICD Code: F10.14 GAF Score: 45 Brief History Mr. Goodman is a 46-year-old male with a reported history of depression who presented voluntarily following an overdose on trazodone. He was medically cleared and Koch acted by the ED provider. Reviewing the electronic medical record, I note that the patient was seen about a week ago by Dr. Worrell in consultation. Patient seen and examined. Case discussed with nurse in the J-pod. On my examination today, the patient reports that he has been feeling depressed for some time secondary to family issues. In particular, the patient says that his sister has moved his parents from a local intermediate to a intermediate in [place], putting them far away from him. He does have some passive and dependent traits on examination. He says that he has been feeling depressed and crying a lot, although there may be some disconnect between mood and affect and he does have a history of stroke in the past. He says that he became acutely suicidal yesterday and wanted to "end it all" and so he took an overdose of trazodone. He is unhappy to have survived his overdose and still feels suicidal now although he does not articulate any desire to hurt himself in the inpatient setting. He denies any audiovisual hallucinations, nor can I elicit any delusional beliefs. No hypomanic or manic symptoms. The remainder of the psychiatric ROS is negative. Past psychiatric history: Patient endorses a history of depression. He is not currently under the care of a psychiatrist. He says his most recent psychiatric admission was about a year ago. Dr. Worrell's note indicates that he has 3 prior psychiatric admissions. He endorses a history of suicide attempts chiefly by overdose, most recently a year ago on pills. He is prescribed Effexor for his depression and reportedly has never tried any other agents. Tobacco Use In Past 30 Days: Cigars and/or Pipe Daily Alcohol Use: 4 or More Times Per Week Hospital Course Patient was started on supportive treatment. He was watch for any alcohol withdrawal symptoms or seizure and treated accordingly. He persevered in all the therapeutic activity on the floor. No behavior or management problem reported. He was willing to abstain from any alcohol use and/or abuse and follow-up as an outpatient. He denied any suicidal ideation intentions of plan denied any auditory or visual hallucinations at that point arrangements were made for him to be discharged Results Blood Pressure 111 / 59 Vital Signs Date Time Temp Pulse Resp B/P Pulse Ox O2 Delivery O2 Flow Rate FiO2 11/24/16 06:54 98.0 74 18 111/59 11/23/16 19:34 97 Please see the EMR Summary of Major Lab Results Nothing significant Summary of Procedures None Imaging None Pending results at discharge: No Medications # of Antipsychotic meds at D/C: 1 Appropriate >1 Antipsych meds?: 2 Approp Antipsych med options 1 - Minimum of three failed multiple trials of monotherapy. Discharge Discharge Date: Nov 24, 2016 Discharge Diagnosis: (1) Major depressive disorder Diagnosis: Principal ICD Code: F32.9 (2) Alcohol abuse with alcohol-induced mood disorder Diagnosis: Secondary ICD Code: F10.14 Mental Status Exam at Disch Patient was alert oriented 3 cooperative casually dressed. His speech was clear spontaneous without any evidence of loose associations or flights of ideas or pressure speech. Denied any suicidal ideation intentions or plan. Denied any auditory or visual hallucinations. Willing to take the medication and follow-up as an outpatient and abstain from any alcohol use and/or abuse Pt Condition on Discharge: Stable Discharge Disposition: Discharge Home Discharge Instructions Diet Instructions: As Tolerated, No Restrictions Activities you can perform: Regular-No Restrictions Scheduled Appointment: Kale Fang (refused) Discharge Time <= 30 minutes Discharge/Advance Care Plan Health Problems: (1) Major depressive disorder Goals to promote your health * To prevent worsening of your condition and complications * To maintain your health at the optimal level Directions to meet your goals Take your medications as prescribed Follow your dietary instruction Follow activity as directed Keep your appointments as scheduled Take your immunizations and boosters as scheduled If your symptoms worsen call your PCP, if no PCP go to Urgent Care Center or Emergency Room For 07/06 questions related to your inpatient stay or results of tests pending at discharge, please contact Dr. Yosvany Brody at Smoking is Dangerous to Your Health. Avoid second hand smoking Problem Qualifiers (1) Major depressive disorder: Qualified Code: F33.2 - Severe episode of recurrent major depressive disorder, without psychotic features Yosvany Brody MD Nov 24, 2016 11:37
[2016-11-24] MEDS ORDERED: VENL75XR PO (11:38)
[2016-11-24] MEDS ORDERED: ARIP1TAB11 PO (11:38)
== END 2016-11-24 13:10 | disposition home or self-care (01) | DRG 885 ==
LOC: NEPC 20:16 → NEDA 11-18 08:20 → H260 11-18 10:55
PROVIDERS: ADMIT Psychiatry & Neurology Psychiatry; ATTEND Psychiatry & Neurology Psychiatry
DX: F33.2 Major depressive disorder, recurrent severe without psychotic features (principal); R45.851 Suicidal ideations; I69.351 Hemiplegia and hemiparesis following cerebral infarction affecting right dominant side; F10.14 Alcohol abuse with alcohol-induced mood disorder; T43.212A Poisoning by selective serotonin and norepinephrine reuptake inhibitors, intentional self-harm, initial encounter; Z72.0 Tobacco use; E87.6 Hypokalemia; Z91.5 Personal history of self-harm; D64.9 Anemia, unspecified; Z79.82 Long term (current) use of aspirin; Z82.0 Family history of epilepsy and other diseases of the nervous system; K21.9 Gastro-esophageal reflux disease without esophagitis; Y92.9 Unspecified place or not applicable; Z90.411 Acquired partial absence of pancreas
CPT/HCPCS: 80048; 80053; 80061; 80307; 80320; 80329; 83036; 85025; 93005; G0480; J7030; Q0163